=== PATIENT | male | born 1965 | race Caucasian/White ===

== ENCOUNTER → 2017-09-27 | Outpatient (CLI) | payer OTHER ==
[~2017-09-27] MED LIST: ALBUTEROL2.5 MG/0.5 INH; AMARYL2 MG PO; ASPIR 8181 MG PO; BACLOFEN 10MG T10 MG PO; BAYER CHEWABLE81 MG PO; BENADRYL25 MG PO; CELEXA20 MG PO; COLACE100 MG PO; ENOXAPARIN40 MG/0.1 SUBQ; GLUCOPHAGE XR500 MG PO; HUMALOG100 UNIT/1; HYDROCODONE-AP1 EAC6 PO; JANUVIA100 MG PO; KEFLEX500 MG PO; LEVOTHYROXINE0.05 MG PO; LIORESAL 10 MG10 MG PO; LIPITOR 20 MG T20 M1 PO; MELATONIN3 MG PO; METFORMIN HCL500 MG PO; MOBIC15 MG PO; MOBIC7.5 MG PO; NEURONTIN 300300 M1 PO; NUVIGIL250 MG PO; PLAVIX 75 MG TA75 M1 PO; PRINIVIL10 MG PO; SEREVENT DISKU50 MCG INH; SINGULAIR 10 MG10 M1 PO; SYMBICORT80 MCG/4.1 INH; VENTOLIN HFA 1818 GM INH; ZOCOR20 MG PO
== END ==
LOC: MRI 09-22 15:38
DX: M75.101 Unspecified rotator cuff tear or rupture of right shoulder, not specified as traumatic (principal); E11.9 Type 2 diabetes mellitus without complications; I10 Essential (primary) hypertension; J45.909 Unspecified asthma, uncomplicated

== ENCOUNTER → 2018-02-07 | Outpatient (CLI) | payer OTHER | LOC: MRI 11:27 | DX: S83.011A Lateral subluxation of right patella, initial encounter (principal); M17.11 Unilateral primary osteoarthritis, right knee; X58.XXXA Exposure to other specified factors, initial encounter; Y93.89 Activity, other specified; Y92.89 Other specified places as the place of occurrence of the external cause; Y99.8 Other external cause status ==

== ENCOUNTER → 2018-06-29 | Outpatient (CLI) | payer OTHER | LOC: MRI 08:28 | DX: G31.9 Degenerative disease of nervous system, unspecified (principal); I65.23 Occlusion and stenosis of bilateral carotid arteries; I67.9 Cerebrovascular disease, unspecified; I63.9 Cerebral infarction, unspecified; Z68.36 Body mass index [BMI] 36.0-36.9, adult; J45.909 Unspecified asthma, uncomplicated; M17.11 Unilateral primary osteoarthritis, right knee; I10 Essential (primary) hypertension; E03.9 Hypothyroidism, unspecified; E78.00 Pure hypercholesterolemia, unspecified; E11.9 Type 2 diabetes mellitus without complications; Z80.1 Family history of malignant neoplasm of trachea, bronchus and lung; Z82.5 Family history of asthma and other chronic lower respiratory diseases ==

== ENCOUNTER → 2019-05-19 | Outpatient (CLI) | payer OTHER | LOC: MRI 11:05 | DX: R90.82 White matter disease, unspecified (principal) ==